=== PATIENT | female | born 1935 | race Caucasian/White ===

== ENCOUNTER 2018-05-04 10:05 | Emergency (ER) | payer MEDICARE, OTHER ==
[~2018-05-04] VITALS: Ht 157.5 cm; Wt 64.4 kg
[2018-05-04] MEDS ORDERED: DIPHTH,PERTUSS(ACELL),TET TOX 0.5 ML DISP.SYRIN. VAX IM ONE (11:15)
[2018-05-04] MEDS ORDERED: LIDOCAINE 1%/EPI 1:100,000 20 ML VIAL. INJ ONE (11:30)
--- NOTE | 2018-05-04 12:07 | RAD ---
EXAM: Head and cervical spine CT without contrast. HISTORY: Fall. TECHNIQUE: Computed tomographic images of the head and cervical spine were obtained without contrast. *One or more of the following individualized dose reduction techniques were utilized for this examination: 1. Automated exposure control. 2. Adjustment of the mA and/or kV according to patient size. 3. Use of iterative reconstruction technique. COMPARISON: None. FINDINGS: Head: There is a large posterior right scalp hematoma. There are foci of gas within the posterior right scalp likely due to a superimposed laceration. No radiodense foreign body is seen. No underlying calvarial fracture is seen. There is no acute or subacute intracranial hemorrhage. There is cerebral volume loss with compensatory enlargement of the ventricles. There are areas of hypodensity within the cerebral white matter, likely due to chronic small vessel disease. There is evidence of lens surgery. There is a right brett bullosa. The mastoid air cells are clear. There are few small arachnoid granulations within the occipital bone. No suspicious calvarial lesion is seen. Cervical spine: There is mild multilevel listhesis. There is degenerative endplate remodeling with disc space narrowing and osteophytosis primarily at C4-C7. There are multiple endplate Schmorl's nodes. There are few small osseous hemangiomas. There is advanced facet arthropathy at multiple levels. No fracture is seen. At C2-C3, there is no stenosis. At C3-C4, there is a right posterior lateral predominant disc bulge and endplate remodeling. There is moderate right facet arthropathy. There is bilateral uncovertebral arthropathy. There is mild to moderate right foraminal stenosis. At C4-C5, there is a disc bulge and endplate osteophytic ptosis. There is mild right and moderate left facet arthropathy. There is bilateral uncovertebral arthropathy. There is mild right and moderate to severe left foraminal stenosis. At C5-C6, there is a disc bulge and endplate remodeling. There is mild bilateral facet arthropathy. There is mild bilateral foraminal stenosis. At C6-C7, there is a disc bulge and endplate remodeling. There is moderate bilateral facet arthropathy. There is no stenosis. IMPRESSION: 1. Large posterior right scalp hematoma and foci of gas due to a suspected superimposed laceration. No retained foreign body, calvarial fracture or acute intracranial hemorrhage is seen. 2. Subtle areas of hypodensity within the cerebral white matter, likely due to chronic small vessel disease. 3. Cerebral atrophy. 4. Multilevel degenerative change within the cervical spine, described above. Electronically signed by: Brooklynn Elizalde MD (05/04/2018 12:04 PM) [facility]
--- NOTE | 2018-05-04 12:35 | PHYS DOC ---
Past Medical History Past Medical History: A-Fib, Hypertension, Pancreatitis Past Surgical History: Other Additional Past Surgical Histo: ruptured intestine Alcohol Use: None Drug Use: None Adult General Chief Complaint Chief Complaint: MECHANICAL FALL HPI HPI Patient is a 82 year old female complaining of mechanical fall brought in by ambulance this was a witnessed fall she tripped over her feet as she was walking down a slanted driveway. No loss of consciousness she does take Plavix no chest pain or shortness of breath mild headache no neck pain Review of Systems Review of Systems Constitutional: Denies fever or chills [] Eyes: Denies change in visual acuity, redness, or eye pain [] HENT: Denies nasal congestion or sore throat [] Respiratory: Denies cough or shortness of breath [] Cardiovascular: No additional information not addressed in HPI [] Integument: Denies rash or skin lesions [] Neurologic: Denies headache, focal weakness or sensory changes [] Endocrine: Denies polyuria or polydipsia [] All other systems were reviewed and found to be within normal limits, except as documented in this note. Current Medications Current Medications Current Medications Medications (Trade) Dose Ordered Sig/Nam Start Time Stop Time Status Last Admin Dose Admin Acetaminophen (Tylenol) 1,000 mg 1X ONCE 05/04/18 13:30 05/04/18 13:31 DC 05/04/18 13:20 1,000 MG Diphtheria/ Tetanus/Acell Pertussis (Boostrix) 0.5 ml ONCE ONCE 05/04/18 11:15 05/04/18 11:16 DC 05/04/18 11:36 0.5 ML Lidocaine/ Epinephrine (LIDOCAINE 1%-EPI 1:100,000 Multi-Dose) 20 ml 1X ONCE 05/04/18 11:30 05/04/18 11:31 DC 05/04/18 11:36 20 ML Allergies Allergies Allergies Coded Allergies Type Severity Reaction Last Updated Verified pseudoephedrine HCl Allergy Intermediate heart 09/02/13 Yes Sulfa (Sulfonamide Antibiotics) Allergy Hives 09/02/13 Yes Physical Exam Physical Exam Constitutional: Well developed, well nourished, no acute distress, non-toxic appearance. [] HENT: Normocephalic, patient has a moderate to large hematoma with several sort of deep abrasions have some oozing but no suturable or staple ABLE lacerations. , bilateral external ears normal, oropharynx moist, no oral exudates, nose normal. [] Eyes: PERRLA, EOMI, conjunctiva normal, no discharge. [] Neck: Normal range of motion, no tenderness, supple, no stridor. [] Pulmonary: Normal respiratory effort no increased work of breathing no obvious chest wall trauma no chest wall tenderness Abdomen: Bowel sounds normal, soft, no tenderness, no masses, no pulsatile masses. [] Skin: Warm, dry, no erythema, no rash. [] Back: No tenderness, no CVA tenderness. [] Extremities: No tenderness, no cyanosis, no clubbing, ROM intact, no edema. [] Neurologic: Alert and oriented X 3, normal motor function, normal sensory function, no focal deficits noted. [] Psychologic: Affect normal, judgement normal, mood normal. [] Current Patient Data Vital Signs Vital Signs Date Time Temp Pulse Resp B/P (MAP) Pulse Ox O2 Delivery O2 Flow Rate FiO2 05/04/18 10:17 98.8 73 18 166/87 (113) 99 Room Air 98.8 EKG EKG [] Interpretation Time: IMPRESSION: 1. Large posterior right scalp hematoma and foci of gas due to a suspected superimposed laceration. No retained foreign body, calvarial fracture or acute intracranial hemorrhage is seen. 2. Subtle areas of hypodensity within the cerebral white matter, likely due to chronic small vessel disease. 3. Cerebral atrophy. 4. Multilevel degenerative change within the cervical spine, described above. Electronically signed by: Brooklynn Elizalde MD (05/04/2018 12:04 PM) [place] [id number] DICTATED and SIGNED BY: BROOKLYNN ELIZALDE MD DATE: 05/04/18 1200 Radiology/Procedures Radiology/Procedures [] Course & Med Decision Making Course & Med Decision Making Pertinent Labs and Imaging studies reviewed. (See chart for details) []82-year-old female who is on Plavix which she tells me is primary prevention no previous stents or stroke who is presenting [facility] head CT is noted negative acute patient was counseled on the importance of coming back for any signs of intracranial hemorrhage which will include confusion or worsening mental status. Son was at the bedside during my evaluation also understands the discharge instructions. The injury that is not suturable Patient was given tetanus in the ER and observed for several hours with maintenance of neuro exam Dragon Disclaimer Dragon Disclaimer This electronic medical record was generated, in whole or in part, using a voice recognition dictation system. Departure Departure Impression: Primary Impression: Closed head injury Disposition: 01 HOME, SELF-CARE Condition: IMPROVED Referrals: CATE GAINES Jr, MD (PCP) KASSIE NOVA MD May 04, 2018 12:35
[2018-05-04 13:20] VITALS: BP 150/78
[2018-05-04] MEDS ORDERED: ACETAMINOPHEN 500 MG TABLET PO ONE (13:30)
== END 2018-05-04 13:55 | disposition home or self-care (01) ==
LOC: ER 10:05
DX: S09.90XA Unspecified injury of head, initial encounter (principal); I48.91 Unspecified atrial fibrillation; I10 Essential (primary) hypertension; Z88.2 Allergy status to sulfonamides; Z88.8 Allergy status to other drugs, medicaments and biological substances; W01.0XXA Fall on same level from slipping, tripping and stumbling without subsequent striking against object, initial encounter; Y93.89 Activity, other specified; Y92.89 Other specified places as the place of occurrence of the external cause; Y99.8 Other external cause status
CPT/HCPCS: 70450; 72125; 90471; 90715; 99284; J3490

== ENCOUNTER → 2019-05-03 | Outpatient (CLI) | payer MEDICARE, OTHER ==
--- NOTE | 2019-05-03 14:46 | KCIC ---
EXAMINATION: Magnetic resonance imaging (MRI) of the brain and brainstem without contrast 05/03/2019 1:15 PM HISTORY: New onset headache. Neck pain and limited range of motion. TECHNIQUE: Multiplanar multi-weighted MRI of the brain and brainstem was performed without intravenous contrast using the general brain protocol. COMPARISON: None available. FINDINGS: The scalp and calvarium are normal. The superior sagittal sinus demonstrates normal venous flow. The corpus callosum is normal in shape and signal intensity. The posterior fossa is unremarkable. The pituitary and sella are normal. The brainstem and craniocervical junction are unremarkable. There are T2/FLAIR signal hyperintense foci in the periventricular and subcortical white matter most suggestive of mild chronic small vessel ischemic changes. Diffusion weighted images reveal no hyperintensities to suggest acute cerebral infarction. The susceptibility weighted sequences reveal no evidence of acute or chronic hemorrhage. Mild generalized cerebral volume loss with prominent ventricles, sulci and basal cisterns. The paranasal sinuses are normal. The visualized portions of the mastoids are unremarkable. The orbits appear normal with exception of bilateral lens replacement. Normal flow voids are demonstrated in the carotid arteries and basilar artery. IMPRESSION: No evidence for acute or subacute ischemia. No suspicious intracranial mass. There are T2/FLAIR signal hyperintense foci in the periventricular and subcortical white matter most suggestive of mild chronic small vessel ischemic changes. Mild generalized cerebral volume loss. Electronically signed by: Ying Lacey MD (05/03/2019 2:43 PM) [facility]
== END | disposition home or self-care (01) ==
LOC: KCIC MRI 12:57
PROVIDERS: ATTEND Psychiatry & Neurology Neurology
DX: G30.9 Alzheimer's disease, unspecified (principal); F02.80 Dementia in other diseases classified elsewhere, unspecified severity, without behavioral disturbance, psychotic disturbance, mood disturbance, and anxiety; N95.9 Unspecified menopausal and perimenopausal disorder
CPT/HCPCS: 70551

== ENCOUNTER → 2019-06-06 | Outpatient (CLI) | payer MEDICARE, OTHER ==
--- NOTE | 2019-06-06 11:31 | KCIC ---
MRI of the cervical spine without contrast 06/06/2019 CLINICAL HISTORY: Chronic neck pain with headaches. TECHNIQUE: Unenhanced T1-weighted, T2-weighted and inversion recovery sagittal and gradient echo and T2-weighted axial images of the cervical spine were obtained. FINDINGS: Comparison is made to the patient's CT scan of the cervical spine dated 05/04/2018. Images from the study are degraded by patient motion. Mild lateral curvature of the cervical spine is seen convex to the right. Degenerative signal changes are seen involving all of the disks of the cervical spine. Degenerative signal changes are seen within the marrow surrounding these discs. No definite area of abnormal signal intensity is seen involving the cervical spinal cord. At the C2-3 disc space there is a mild generalized disc bulge. This is eccentric to the right. Degenerative changes are seen involving the uncovertebral and facet joints, right greater than left. These findings do not result in significant central spinal canal or neural foraminal stenosis. At the C3-4 disc space there is a mild to moderate generalized disc bulge. This is eccentric to the right. Degenerative changes are seen involving the uncovertebral and facet joints, right greater than left. These findings when combined result in mild central spinal canal stenosis without evidence of cord impingement. Mild to moderate right neural foraminal stenosis is seen. At the C4-5 disc space there is a mild generalized disc bulge. Degenerative changes are seen involving the uncovertebral and facet joints, left greater than right. These findings when combined result in mild central spinal canal stenosis without evidence of cord impingement. Mild left neural foraminal stenosis is seen. The right neural foramen is patent. At the C5-6 disc space there is a mild generalized disc bulge. Degenerative changes are seen involving the uncovertebral and facet joints bilaterally. These findings when combined result in mild central spinal canal stenosis without evidence of cord impingement. No neural foraminal stenosis is seen. At the C6-7 disc space there is a mild generalized disc bulge. Degenerative changes are seen involving the uncovertebral and facet joints bilaterally. These findings result in mild central spinal canal stenosis without evidence of cord impingement. No neural foraminal stenosis is seen. At the C7-T1 disc space there is a minimal generalized disc bulge. Degenerative changes are seen involving the facet joints bilaterally. These findings do not result in significant central spinal canal or neural foraminal stenosis. IMPRESSION: Degenerative changes are seen throughout the cervical spine. These findings result in mild central spinal canal stenosis at C3-4, C4-5, C5-6 and C6-7 without evidence of cord impingement. Mild to moderate right neural foraminal stenosis is seen at C3-4. Mild left neural foraminal stenosis is seen at C4-5. Electronically signed by: Jordan Wilburn MD (06/06/2019 11:28 AM) [facility]
== END | disposition home or self-care (01) ==
LOC: KCIC MRI 09:54
PROVIDERS: ATTEND Internal Medicine
DX: M48.02 Spinal stenosis, cervical region (principal); M50.323 Other cervical disc degeneration at C6-C7 level; G89.29 Other chronic pain
CPT/HCPCS: 72141

== ENCOUNTER → 2019-08-19 | Outpatient (CLI) | payer MEDICARE, OTHER ==
[~2019-08-19] MED LIST: CLOP75TA PO; METO25TA4 PO
--- NOTE | 2019-08-19 23:58 | PAIN ---
DATE OF SERVICE: 08/19/2019 INITIAL CONSULTATION FOR PAIN CLINIC CHIEF COMPLAINT: Neck and left upper extremity pain. HISTORY OF PRESENT ILLNESS: This is an 83-year-old female who presents with history of pain in the base of the neck on the left side after a fall in her home driveway in 05/2018. The patient reports before that she was doing well, had no significant pain or other problems significantly. The patient reports the pain has increased since the fall, constant now, sharp, throbbing, shooting into the neck and the shoulder on the left, primarily staying in the left neck, however. The patient reports that occasionally it radiated to the right shoulder, upper shoulder, upper arm, but this is rare, usually only with repetitive motion of the left arm or reaching over her head repetitively with the left side with her left hand. The patient reports it awakens up her from sleep at night about 3 times a night, it causes headaches on the left side as well as in the posterior occipital region, does not affect her bowel or bladder control or ability to walk. She has not tried any other therapies currently, physical therapy, chiropractic treatments, no other treatments officially. She is doing some massage therapy on her own and some heat application, which decreases the pain to a minor extent. The patient has tried Tylenol. She takes ibuprofen occasionally as well, which does decrease the headaches, but not help the pain in the neck significantly. The patient reports a disability rating from 0-10, 10 being the worst, is a 3 with family home responsibilities and recreation, 4 with social activity, 1 with occupation, 5 with life support activities, 0 with self-care activities. The patient did have an MRI scan of the cervical spine showing multilevel degenerative changes throughout the cervical spine resulting in mild central spinal stenosis at C3-C4, C4-C5, C5-C6 and C6-C7 without evidence of cord impingement, mild to moderate right neural foraminal stenosis at C3-C4 and left neural foraminal stenosis at C4-C5. The patient reports no loss of motor function in the left upper extremity, but fatigability slightly more increased with use of the left arm and she is right handed. PAST MEDICAL HISTORY: Significant for hypertension, pancreatitis, perforated gastric ulcer in the past, dizziness, headaches, arthritis. The patient had surgery for the perforated ulcer with partial gastrectomy by her report. CURRENT MEDICATIONS: Include only metoprolol and Plavix. ALLERGIES: THE PATIENT IS ALLERGIC TO SULFA. FAMILY HISTORY: Significant for pancreatic cancer in the patient's sister. SOCIAL HISTORY: The patient does not drink alcohol, does not smoke, does not use any illegal, illicit or recreational drugs. She is , lives with her spouse, has one child, living at home, lives locally in [place], [place]. REVIEW OF SYSTEMS: The patient's review of systems is positive for those items mentioned in history of present illness. All systems reviewed and otherwise negative. It is complete, full and well documented on the patient's chart. PHYSICAL EXAMINATION: VITAL SIGNS: The patient's blood pressure 155/97, pulse 72, respirations 18, temperature 97.9 degrees Fahrenheit, height is 5 feet and 3 inches and weight is 147 pounds. GENERAL: The patient is awake, alert, oriented, appropriate, very pleasant demeanor. HEENT: Shows normocephalic and atraumatic. Extraocular movements are intact and symmetrical. Oral cavity: Mucous membranes moist and pink. Dentition is intact. NECK: Shows anterior throat is supple without palpable lymphadenopathy noted. Swallow reflex symmetrical. CHEST: Shows normal on inspection. Breath sounds are clear to auscultation bilaterally. HEART: Shows S1, S2 clear. No murmurs auscultated. ABDOMEN: Soft, nontender, nondistended. No palpable organomegaly is noted. No rebound or guarding demonstrated. BACK: Shows spine grossly in the midline, normal-appearing cervical lordotic curvature, thoracic kyphotic curvature and lumbar lordotic curvature. Cervical paraspinous muscle shows symmetrical on inspection, with palpation shows some moderate tenderness diffusely bilaterally going diffusely without significant radiation of pain. The patient has good rotational motion of cervical spine with some moderate tenderness with far left lateral rotation and forward flexion, less so with extension, right lateral rotation is performed past 45 degrees as well without significant difficulty. EXTREMITIES: The patient's upper extremities show deep tendon reflexes at 2+ in the biceps and triceps tendons. Motor exam is strong with blacksmith assistant strength rated at 4/5 on the left, 5/5 on the right. Bicep and tricep flexion is 5/5 bilaterally without exacerbation of pain. Shoulder shrug is strong and intact without loss of strength on resistance with some minor pain in the base of the neck on the left side in the superior medial trapezius on the left with resistance. This is true with abduction of shoulder to 90 degrees as well with resistance, but no loss of strength on resistance with either of these maneuvers. The patient's peripheral pulses are 2+, radial distribution. Upper extremities are warm and dry to touch, equal in color and appearance. The patient's skin shows warm and dry, good turgor. No edema. No sores, rashes or bruising throughout. IMPRESSION: 1. This is an 83-year-old female with approximate 1-year, 2-month history status post fall on her driveway with significant pain in the left neck as well as left upper extremity and shoulder with radicular pattern. 2. MRI scan of cervical spine as noted. 3. Hypertension. 4. Arthritis. 5. Anticoagulation therapy. PLAN: Options were discussed with the patient and the patient's daughter who accompanied her to visit today including conservative medical managements, physical therapies and interventional techniques. She would like to pursue interventional techniques. We discussed a cervical epidural steroid injection using description as well as anatomical models to describe the procedure, but the patient is currently taking Plavix, we will check with her primary care physician who prescribes this for her. She will be safe and acceptable to hold the Plavix for 7 days prior to cervical epidural steroid injection. The patient will be maintained on the medication if determined safe and appropriate. We will have her hold this and return for cervical epidural steroid injection at that time. GIN FAIR MD DR: ELVIA/jaquelin JOB#: [id number] / [id number] KEESHA José MD
== END | disposition home or self-care (01) ==
LOC: PNCL 13:40
PROVIDERS: ATTEND Anesthesiology
DX: M54.2 Cervicalgia (principal); M79.602 Pain in left arm; I10 Essential (primary) hypertension; M19.90 Unspecified osteoarthritis, unspecified site; Z79.899 Other long term (current) drug therapy; Z88.2 Allergy status to sulfonamides
CPT/HCPCS: G0463

== ENCOUNTER → 2019-08-30 | Outpatient (CLI) | payer MEDICARE, OTHER ==
[~2019-08-30] MED LIST changes: +IOHEXOL 180 MG/ML 10 ML VIAL. ONE; +methylPREDNISolone ACETATE 40 MG/ML VIAL. ONE; +methylPREDNISolone ACETATE 80 MG/ML VIAL. ONE
--- NOTE | 2019-08-30 11:13 | PAIN ---
DATE OF SERVICE: 08/30/2019 PROGRESS NOTE FOR PAIN CLINIC DIAGNOSIS: Cervical radiculopathy with cervical degenerative disk disease. HISTORY OF PRESENT ILLNESS: The patient is an 83-year-old female who returns for followup status post initial evaluation and holding Plavix. She has gained clearance from her primary care physician to hold that and she has been off of this now for 7 days. The patient reports still significant pain in the base of the neck, more on the left side across the shoulders and arms, upper extremities and into the left side of the neck and left mastoid region causing some significant headaches. The patient reports the pain is aching, sharp and shooting. It is a 10 on a scale of 10 at its worst over the past week, 8 on average, 6 at its least and is an 8 today. The patient reports no new motor or sensory deficits, no new changes. PHYSICAL EXAMINATION: VITAL SIGNS: Blood pressure 158/82, pulse 60, respirations 16, temperature 98.2 degrees Fahrenheit. GENERAL: The patient is awake, alert, oriented, appropriate, very pleasant demeanor. The patient is accompanied by her daughters. HEENT: Shows normocephalic, atraumatic. Extraocular movements are intact and symmetrical. Oral cavity: Mucous membranes moist and pink. Dentition is intact. NECK: Shows anterior throat supple without palpable lymphadenopathy noted. Swallow reflex symmetrical. CHEST: Shows normal on inspection. Breath sounds are clear bilaterally. HEART: Shows S1, S2 clear. No murmurs auscultated. ABDOMEN: Soft, nontender, nondistended. No palpable organomegaly is noted. No rebound or guarding demonstrated. BACK: Shows spine grossly in the midline. Slightly exaggerated thoracic kyphosis. Cervical lordotic curvature slightly flattened. Cervical paraspinous muscle shows symmetrical on inspection, on palpation shows some moderate tenderness diffusely bilaterally going diffusely without significant radiation. The patient has good rotational motion, but significant tenderness with left lateral rotation at the mastoid process itself. This is true with extension of the cervical spine and true with pain in the mastoid region also. EXTREMITIES: The patient's upper extremities show deep tendon reflexes 2+ in the biceps, triceps tendons. Motor exam is approximately 4 on a scale of 5 with left popcorn attendant strength and 5/5 on the right. Peripheral pulses are 2+ radial. No peripheral edema is noted bilaterally. Options were discussed with the patient. The patient's old chart was reviewed as her current medication regimen updated. Current review of systems updated today as well. We will proceed with a cervical epidural steroid injection today with fluoroscopic guidance. Risks were again discussed including, but not limited to bleeding, infection, possibility of epidural hematoma, subsequent neurological compromise, dural puncture, headaches, spinal cord and/or nerve damage, side effects of steroid medication and poor results regarding pain control. The patient understands and wished to proceed. The patient will return to clinic in approximately 2 weeks for followup. She was counseled as to return appointment, activity level and side effects to be aware of. DIAGNOSIS: Cervical radiculopathy with cervical degenerative disk disease. PROCEDURE: Cervical epidural steroid injection, translaminar approach C6-C7 level using C-arm fluoroscopic guidance under sterile prep and drape using local anesthetic. MEDICATION INJECTED: A total of 120 mg Depo-Medrol plus 5 mL of preservative-free normal saline and 2 mL of contrast. CONDITION AT DISCHARGE: Stable. The patient tolerated procedure well, had no complications. GIN FAIR MD DR: ELVIA/jaquelin JOB#: [id number] / [id number]
== END ==
LOC: PNCL 07:58
PROVIDERS: ATTEND Anesthesiology
DX: M50.123 Cervical disc disorder at C6-C7 level with radiculopathy (principal)
CPT/HCPCS: 62321; J1030; J1040; Q9965

== ENCOUNTER → 2019-09-17 | Outpatient (CLI) | payer MEDICARE, OTHER ==
[~2019-09-17] MED LIST changes: +BUPIVACAINE MPF 0.25% 10 ML VIAL. ONE; -IOHEXOL 180 MG/ML 10 ML VIAL. ONE; -methylPREDNISolone ACETATE 80 MG/ML VIAL. ONE
--- NOTE | 2019-09-17 10:53 | PAIN ---
DATE OF SERVICE: 09/17/2019 PROGRESS NOTE FOR PAIN CLINIC DIAGNOSES: Cervical radiculopathy with cervical degenerative disk disease, cervicalgia, and myofascial pain. HISTORY OF PRESENT ILLNESS: The patient is an 83-year-old female who returns for followup status post cervical epidural steroid injection x 1 on 08/30/2019. The patient reports no significant improvement in pain, still significant pain in the base of the neck, mostly on the left side with some crawling sensations in the left occiput and parietal region. The patient reports that the pain is becoming much worse and she is having difficulty moving her neck. She can only find one position at night where she lays a pillow on her left side and can be propped up just to try to get the pain to decrease. The patient had one day when her pain was a 5 on a scale of 10, otherwise it has been a 10 or 9 on average over the past week. The patient reports that it is a 9 today. The patient reports it is sharp, shooting, tingling, radiating, and becoming more constant in the base of the neck and shoulder, in the left shoulder and upper extremity as well, mostly in the neck itself. At the end of the day, she is able to look down. She cannot see the table where she is sitting at because of the pain limiting her forward flexion. The patient reports no new motor or sensory deficits or other complaints. PHYSICAL EXAMINATION: VITAL SIGNS: The patient's blood pressure 134/92, pulse 71, respirations 18, temperature 98.4 degrees Fahrenheit, height is 5 feet 2 inches, and weight is 143 pounds. GENERAL: The patient is awake, alert, oriented, and appropriate. Very pleasant demeanor. HEENT: Head is normocephalic and atraumatic. Extraocular movements are intact and symmetrical. Oral cavity: Mucous membranes are moist and pink. Dentition is intact. NECK: Anterior throat supple without palpable lymphadenopathy noted. Swallow reflex symmetrical. CHEST: Normal on inspection. Breath sounds clear to auscultation bilaterally. HEART: S1, S2 clear. BACK: Spine grossly in the midline, slight exaggerated thoracic kyphosis. Some flattening of cervical lordotic curvature. The patient is guarding cervical motion fairly significantly, especially to the left side with palpation showing some significant tenderness and very firm rope-like musculature in the left paraspinous musculature compared to the right and superior, middle and inferior aspect of the cervical paraspinous muscles, also into the superior medial trapezius, and anteriorly into the sternocleidomastoid at the mid body to upper body on the left side only. Right side shows supple musculature without significant tenderness. Left side shows very firm rope-like musculature without significant radiation, but very firm tenderness over the musculature itself consistent with trigger point areas of musculature. EXTREMITIES: The patient's upper extremities show deep tendon reflexes at 2+ in biceps, triceps tendons. Motor exam is approximately 4 on a scale of 5 with left secret service agent strength, bicep and tricep flexion and 5/5 on the right. Peripheral pulses are 2+ in radial distribution. No peripheral edema is noted. Options were discussed with the patient. The patient's old chart was reviewed, as her current medication regimen updated. Current review of systems updated today as well. We will proceed with trigger point injections of the aforementioned musculature. Risks were discussed including but not limited to bleeding, infection, possibility of intravascular injection sequelae, spread of local anesthetic and numbness, side effects of steroid medication and poor results regarding pain control. The patient understands and wished to proceed. The patient will return to clinic in approximately 2 weeks for followup. She was counseled on return appointment, activity level, and side effects to be aware of. DIAGNOSIS: Myofascial pain. PROCEDURE: Trigger point injections in left cervical paraspinous musculature, left trapezius musculature, and left sternocleidomastoid musculature under sterile prep and drape using local anesthetic. MEDICATIONS INJECTED: A total of 40 mg of Depo-Medrol plus total of 7 mL of 0.25% bupivacaine after negative aspiration at each injection site. CONDITION AT DISCHARGE: Stable. The patient tolerated procedure well and had no complications. GIN FAIR MD DR: ELVIA/jaquelin JOB#: [id number] / [id number]
== END ==
LOC: PNCL 08:09
PROVIDERS: ATTEND Anesthesiology
DX: M79.18 Myalgia, other site (principal); M50.10 Cervical disc disorder with radiculopathy, unspecified cervical region
CPT/HCPCS: 20553; J1030; J3490

== ENCOUNTER → 2019-10-01 | Outpatient (CLI) | payer MEDICARE, OTHER ==
[~2019-10-01] MED LIST changes: +IOHEXOL 180 MG/ML 10 ML VIAL. ONE; +methylPREDNISolone ACETATE 80 MG/ML VIAL. ONE
--- NOTE | 2019-10-01 10:07 | PAIN ---
DATE OF SERVICE: 10/01/2019 PROGRESS NOTE FOR PAIN CLINIC DIAGNOSIS: Cervical radiculopathy with cervical degenerative disk disease and cervical spondylosis. HISTORY OF PRESENT ILLNESS: The patient is an 83-year-old female who returns for followup status post trigger point injections as well as cervical epidural steroid injection with only minimal decrease in pain after the trigger point injections on her last visit on 09/14/2019. The patient reports still significant pain in the base of the neck on left side with headaches, wormy crawling sensation in the left occipital region and left ear. The patient reports that the pain is a 9 on a scale of 10 at its worst over the past week, 5 on average, 2 at its least, and is a 5 today. The patient reports that it is tingling, aching, sharp, shooting, and becoming more constant in the left side of the neck. The patient reports the trigger points helped only temporarily for the first 1 or 2 days and the pain returned fairly significantly and fairly quickly. Again, significant pain in the base of the head that is on the left side of the upper neck and mid neck and on the left side with difficulty with rotational motion, especially extension, flexion, and lateral rotation to the left. The patient reports that it awakens her from sleep about every 6 hours. No new motor or sensory deficits, however. PHYSICAL EXAMINATION: VITAL SIGNS: The patient's blood pressure 148/98, pulse 72, respirations 18, temperature 98.1 degrees Fahrenheit, height is 5 feet 2 inches, and weight is 143 pounds. GENERAL: The patient is awake, alert, oriented, and appropriate. Very pleasant demeanor. The patient is accompanied by her daughter. HEENT: Head is normocephalic and atraumatic. The patient wears eye glasses. Extraocular movements are intact and symmetrical. Oral cavity shows mucous membranes moist and pink. NECK: Shows anterior throat supple. Swallow reflex symmetrical. CHEST: Shows normal on inspection. Breath sounds are clear bilaterally. HEART: Shows S1, S2 clear. ABDOMEN: Soft and nontender. MUSCULOSKELETAL: Back shows spine grossly in the midline with slight flattening of cervical lordotic curvature and thoracic kyphosis which is exaggerated. Cervical paraspinous muscle shows symmetrical on inspection. With palpation, there is a very firm musculature in the left greater than right paraspinous distribution, mostly in the superior and middle aspect of the cervical paraspinous musculature, less so in the inferior aspect and into the trapezius bilaterally. Very significant tenderness with palpation just under the edge of the skull on the left side and in the posterior cervical paraspinous musculature on the left and right side is very minimally tender. The patient does have limited rotational motion secondary to pain with left lateral rotation very guarded and very slow close to 45 degrees. Right side is better, but still guarded. Extension is guarded as well. Forward flexion is performed with greater ease and comfort, chin to chest without significant pain reported. EXTREMITIES: The patient's upper extremities show deep tendon reflexes 2+ in the biceps and triceps tendons. Motor exam is approximately 4 on a scale of 5 on the left with therapy manager strength and 5/5 on the right. Peripheral pulses are 2+ radial. No peripheral edema is noted. ASSESSMENT AND PLAN: Options were discussed with the patient and the patient's daughter who accompanied her to visit today including continued conservative medical management and interventional techniques. We discussed cervical facet injections on the left side. The patient's old chart was reviewed, as her current medication regimen updated. Current review of systems is updated today as well. We will proceed with left-sided cervical facet joint injections at C2, C3, and C4 levels. Risks were discussed including but not limited to bleeding, infection, possibility of epidural hematoma, subsequent neurological compromise, dural puncture, headaches, spinal cord and/or nerve damage, side effects of steroid medication, exposure to fluoroscopy, and poor results regarding pain control. The patient understands and wished to proceed. The patient will return to clinic in approximately 2 weeks for followup. She was counseled on return appointment, activity level, and side effects to be aware of. DIAGNOSIS: Cervical degenerative disk disease with cervical spondylosis. PROCEDURE: Cervical facet medial branch blocks at the C2, C3, and C4 levels under sterile prep and drape using local anesthetic. MEDICATION INJECTED: A total of 3 mL of 0.25% bupivacaine and 1.5 mL total of contrast. CONDITION AT DISCHARGE: Stable. The patient tolerated the procedure well and had no complications. GIN FAIR MD DR: ELVIA/jaquelin JOB#: [id number] / [id number]
== END | disposition home or self-care (01) ==
LOC: PNCL 08:41
PROVIDERS: ATTEND Anesthesiology
DX: M50.11 Cervical disc disorder with radiculopathy, high cervical region (principal); M47.22 Other spondylosis with radiculopathy, cervical region; Z98.890 Other specified postprocedural states; Z88.1 Allergy status to other antibiotic agents; Z88.8 Allergy status to other drugs, medicaments and biological substances
CPT/HCPCS: 64490; 64491; 64492; J1030; J1040; J3490; Q9965

== ENCOUNTER → 2019-10-22 | Outpatient (CLI) | payer MEDICARE, OTHER ==
[~2019-10-22] MED LIST changes: -BUPIVACAINE MPF 0.25% 10 ML VIAL. ONE; -IOHEXOL 180 MG/ML 10 ML VIAL. ONE; -methylPREDNISolone ACETATE 40 MG/ML VIAL. ONE; -methylPREDNISolone ACETATE 80 MG/ML VIAL. ONE
--- NOTE | 2019-10-22 12:45 | RAD ---
LUMBAR SPINE WO CONTRAST History: Bilateral leg pain. Technique: Multiplanar, multi sequential MR imaging was performed of the lumbar spine. Comparison: None Findings: Grade 2 anterolisthesis L4 on L5. Otherwise, normal alignment. T12 mild superior endplate chronic compression fracture. No acute fracture. Conus terminates at the normal location. No evidence of nerve root clumping. L1-L2: No canal or neuroforaminal narrowing. L2-L3: Small posterior disc bulge. Mild facet arthropathy. No canal narrowing. Mild right neuroforaminal narrowing. No left neuroforaminal narrowing. L3-L4: Small posterior disc bulge. Mild facet arthropathy. Mild subarticular recess narrowing. No canal narrowing. Mild mild bilateral neural foraminal narrowing. L4-L5: Anterolisthesis. Disc uncovering. Advanced facet arthropathy. Moderate to severe canal narrowing. Severe subarticular recess narrowing. Mild bilateral neural foraminal narrowing. L5-S1: Posterior disc bulge. Moderate right greater than left facet arthropathy. No canal narrowing. Mild right neuroforaminal narrowing. No left neuroforaminal narrowing. Impression: 1. Grade 2 anterolisthesis L4 on L5 due to advanced facet arthropathy contributing to moderate to severe canal narrowing. 2. Additional multilevel lumbar spondylosis with neuroforaminal narrowing. Electronically signed by: Rylan Benson DO (10/22/2019 12:42 PM) [id number]
== END ==
LOC: MRI 08:37
PROVIDERS: ATTEND Anesthesiology
DX: M48.061 Spinal stenosis, lumbar region without neurogenic claudication (principal); M47.816 Spondylosis without myelopathy or radiculopathy, lumbar region
CPT/HCPCS: 72148

== ENCOUNTER → 2019-10-24 | Outpatient (CLI) | payer MEDICARE, OTHER ==
[~2019-10-24] MED LIST changes: +IOHEXOL 180 MG/ML 10 ML VIAL. ONE; +methylPREDNISolone ACETATE 40 MG/ML VIAL. ONE; +methylPREDNISolone ACETATE 80 MG/ML VIAL. ONE
--- NOTE | 2019-10-24 21:37 | PAIN ---
DATE OF SERVICE: 10/24/2019 PROGRESS NOTE FOR PAIN CLINIC DIAGNOSES: 1. Cervical radiculopathy with cervical degenerative disk disease and cervical spondylosis. 2. Lumbar radiculopathy with lumbar degenerative disk disease and lumbar spinal stenosis. HISTORY OF PRESENT ILLNESS: The patient is an 84-year-old female who returns for followup status post cervical epidural steroid injection as well as cervical facet injections on the left at C2, C3, and C4 on her last visit, which was 10/01/2019. The patient did very well with the neck and improved significantly about 60%, but her chief complaint is low back and left lower extremity pain. We ordered an MRI scan on her dated 10/22/2019 showing some advanced to [id number] canal narrowing at L4-L5 and severe subarticular recess narrowing and mild bilateral neural foraminal narrowing, also posterior disk bulge as well as disk bulge at L3-L4 and L5-S1 with moderate right greater than left facet arthropathy at L5-S1 as well with grade 2 anterolisthesis at L4-L5 due to advanced facet arthropathy contributing to [id number] canal narrowing. The patient reports significant pain and discomfort over the past week or so in the low back, left lower extremity, posterior gluteus, posterolateral thigh, lateral anterior thigh, anterior medial thigh, was aching and sharp, shooting, dull, tingling, burning, stabbing, radiating, becoming more constant, more severe and unbearable, especially with sitting. The patient reports it is better with standing, but she has been off of her weight on her right leg. The patient reports it awakens her from sleep about every 4 hours. The patient reports no loss of motor function, but significant fatigability with left lower extremity with ambulation and weightbearing of any kind. PHYSICAL EXAMINATION: VITAL SIGNS: The patient's blood pressure is 141/81, pulse 79, respirations are 18, temperature 98.2 degrees Fahrenheit, height is 5 feet 2 inches, weight is 143 pounds. GENERAL: The patient is awake, alert, oriented, appropriate, very pleasant demeanor. The patient is accompanied by her daughter. HEENT: Shows normocephalic, atraumatic. Extraocular movements are intact and symmetrical. Oral cavity shows mucous membranes moist and pink. Dentition is intact. NECK: Shows anterior throat supple without palpable lymphadenopathy noted. Swallow reflex symmetrical. CHEST: Shows normal on inspection. Breath sounds clear bilaterally. HEART: Shows S1, S2 clear. ABDOMEN: Soft, nontender, nondistended. BACK: Shows spine grossly in the midline. Cervical paraspinous muscle shows symmetrical on inspection, with palpation some moderate tenderness, but only diffusely in the low cervical distribution on the left side only with better rotation of motion compared to previous exam with good extension and flexion and better left lateral rotation, but still not completely full to past 45 degrees. The patient's upper extremities show deep tendon reflexes 2+ in the biceps, triceps tendons. Motor exam is strong with 4/5 on the left and 5/5 on the right with planning supervisor strength, bicep and tricep flexion. Peripheral pulses are 2+. The patient's low back shows normal appearing lordotic curvature. Paraspinous muscle shows symmetrical on inspection, palpation shows some moderate tenderness diffusely, more on the left than the right, but present bilaterally in the lumbar paraspinous muscles, but without radiation. The patient does show good rotational motion of lumbar spine, both laterally as well as extension and flexion without significant difficulty or pain reported. The patient's lower extremities show deep tendon reflexes 1+ in the patellar and tendo calcaneus tendons and are equal. Motor exam is strong with 5/5 dorsiflexion, extension on the right, 4/5 on the left. Peripheral pulses are 1+. No peripheral edema is noted bilaterally. Options were discussed with the patient. The patient's old chart was reviewed as her current medication regimen updated. Current review of systems updated today as well. We will proceed with a lumbar epidural steroid injection today with fluoroscopic guidance. Risks were again discussed including, but not limited to bleeding, infection, possibility of epidural hematoma, subsequent neurological compromise, dural puncture, headaches, spinal cord and/or nerve damage, side effects of steroid medication and poor results regarding pain control. The patient understands and wished to proceed. The patient will return to clinic in approximately 2 weeks for followup. She was counseled on return appointment, activity level and side effects to be aware of. DIAGNOSIS: Lumbar radiculopathy with lumbar degenerative disk disease, lumbar spinal stenosis. PROCEDURE: Lumbar epidural steroid injection, translaminar approach L4-L5 level using C-arm fluoroscopic guidance under sterile prep and drape using local anesthetic. MEDICATION INJECTED: A total of 120 mg Depo-Medrol plus 10 mL of preservative-free normal saline and 2 mL of contrast. CONDITION AT DISCHARGE: Stable. The patient tolerated the procedure well, had no complications. GIN FAIR MD DR: ELVIA/jaquelin JOB#: [id number] / [id number]
== END ==
LOC: PNCL 11:17
PROVIDERS: ATTEND Anesthesiology
DX: M51.16 Intervertebral disc disorders with radiculopathy, lumbar region (principal); M48.061 Spinal stenosis, lumbar region without neurogenic claudication; M50.10 Cervical disc disorder with radiculopathy, unspecified cervical region
CPT/HCPCS: 62323; J1030; J1040; Q9965

== ENCOUNTER → 2019-11-07 | Outpatient (CLI) | payer MEDICARE, OTHER ==
--- NOTE | 2019-11-08 02:10 | PAIN ---
DATE OF SERVICE: 11/07/2019 PROGRESS NOTE FOR PAIN CLINIC DIAGNOSES: 1. Lumbar radiculopathy with lumbar degenerative disk disease and lumbar spinal stenosis. 2. Cervical radiculopathy with cervical degenerative disk disease and cervical spondylosis. HISTORY OF PRESENT ILLNESS: The patient is an 84-year-old female who returns for followup status post lumbar epidural steroid injection x 1. The patient reports only a minor amount of decreased pain in her low back and left lower extremity. The patient reports still pinching in the left posterior gluteus, posterior thigh, posterior calf, lateral calf, lateral and anterior thigh on the left side only. The patient reports it is something "pinching" in her leg. Sensation is sharp and tight, shooting. The patient reports it is a 9 on a scale of 10 at all times, worst, least and average and is a 9 today. The patient reports no loss of motor function, but significant fatigability with left leg. Also some pain in the base of the neck and the left shoulder, but she did better after some facet injections in the cervical distribution, but this is beginning to return minimally as well. The patient reports no new motor or sensory deficits, no new bowel or bladder incontinence. PHYSICAL EXAMINATION: VITAL SIGNS: The patient's blood pressure is 133/76, pulse 68, respirations 16, temperature 97.7 degrees Fahrenheit, height is 5 feet 2 inches. GENERAL: The patient is awake, alert, oriented and appropriate, very pleasant demeanor. HEENT: Head shows normocephalic, atraumatic. Extraocular movements are intact and symmetrical. Oral cavity, mucous membranes moist and pink. Dentition is intact. NECK: Shows anterior throat supple without palpable lymphadenopathy noted. Swallow reflex symmetrical. CHEST: Shows breath sounds clear to auscultation bilaterally. HEART: Shows S1, S2 clear. ABDOMEN: Soft, nontender, and nondistended. BACK: Shows spine grossly in the midline, slight flattening of cervical lordotic curvature, somewhat increased thoracic kyphosis and some flattening of lumbar lordotic curvature. Cervical paraspinous muscle shows some moderate tenderness on the left side in the inferior aspect of the cervical paraspinous musculature and near the mastoid process on the left as well with some tight musculature, which is moderately firm and moderately tender with palpation, but without specific trigger points. The patient's lumbar spine shows lumbar paraspinous musculature symmetrical on inspection, with palpation shows some moderate tenderness throughout the upper, middle and lower distribution of paraspinous muscles bilaterally, but only diffusely without significant radiation. The patient has good rotational motion of lumbar spine, both laterally as well as extension and flexion. EXTREMITIES: Lower extremities show deep tendon reflexes 1+ in the patellar and tendo calcaneus tendons. Motor exam is approximately 4 on a scale of 5 on the left and 5/5 on the right with dorsiflexion and extension. Peripheral pulses are 1+ in posterior tibia. No peripheral edema is noted. Options were discussed with the patient. The patient's old chart was reviewed as his current medication regimen updated. Current review of systems updated today as well. We will proceed with lumbar epidural steroid injection today as the second in this series with fluoroscopic guidance. Risks were again discussed including, but not limited to bleeding, infection, possibility of epidural hematoma, subsequent neurological compromise, dural puncture, headaches, spinal cord and/or nerve damage, side effects of steroid medication and poor results regarding pain control. The patient understands and wished to proceed. The patient will return to clinic in approximately 2 weeks for followup. He was counseled on return appointment, activity level and side effects to be aware of. DIAGNOSIS: Lumbar radiculopathy with lumbar degenerative disk disease, lumbar spinal stenosis. PROCEDURE: Lumbar epidural steroid injection, translaminar approach at L4-L5 level using C-arm fluoroscopic guidance under sterile prep and drape using local anesthetic. MEDICATION INJECTED: A total of 120 mg Depo-Medrol plus 10 mL of preservative-free normal saline and 2 mL of contrast. CONDITION AT DISCHARGE: Stable. The patient tolerated procedure well, had no complications. GIN FAIR MD DR: ELVIA/jaquelin JOB#: [id number] / [id number]
== END ==
LOC: PNCL 14:25
PROVIDERS: ATTEND Anesthesiology
DX: M51.16 Intervertebral disc disorders with radiculopathy, lumbar region (principal); M50.10 Cervical disc disorder with radiculopathy, unspecified cervical region; M47.812 Spondylosis without myelopathy or radiculopathy, cervical region; M48.061 Spinal stenosis, lumbar region without neurogenic claudication
CPT/HCPCS: 62323; J1030; J1040; Q9965

== ENCOUNTER 2020-04-13 04:32 | Emergency (ER) | payer MEDICARE, OTHER ==
[~2020-04-13 04:32] MED LIST changes: -IOHEXOL 180 MG/ML 10 ML VIAL. ONE; -methylPREDNISolone ACETATE 40 MG/ML VIAL. ONE; -methylPREDNISolone ACETATE 80 MG/ML VIAL. ONE
== END 2020-04-13 05:15 | disposition left against medical advice (07) ==
LOC: ER 04:32
DX: R42 Dizziness and giddiness (principal); Z53.21 Procedure and treatment not carried out due to patient leaving prior to being seen by health care provider